=== PATIENT | female | born 1965 | race African-American/Black ===

== ENCOUNTER 2016-11-17 04:49 | Emergency (ER) | payer OTHER ==
[~2016-11-17] VITALS: Ht 165.1 cm; Wt 65.3 kg
[~2016-11-17 04:49] MED LIST: COUMADIN 5 MG TA5 M1 PO; ENOXAPARIN100 MG/1 M SQ; ESTRACE2 MG PO; GLUCOSAMINE1000 MG PO; HYDROXYCHLOROQ200 M1 PO; MULTI-VITAMIN1 EAC5 PO; NORCO 5-325 TA1 EACH PO; PEPCID40 MG PO; TRAMADOL 50 MG50 MG PO; TUSSIONEX PENN473 ML PO; ZPAK PO
[2016-11-17] MEDS ORDERED: ACYCLOVIR 800800 MG PO (05:32)
[2016-11-17] MEDS ORDERED: TRAMADOL 50 MG50 MG PO (05:32)
== END 2016-11-17 06:00 | disposition home or self-care (01) ==
LOC: ER 04:49
DX: B02.9 Zoster without complications (principal); Z91.012 Allergy to eggs; Z88.0 Allergy status to penicillin; Z88.2 Allergy status to sulfonamides

== ENCOUNTER → 2020-04-19 | Outpatient (CLI) | payer OTHER ==
[~2020-04-19] MED LIST changes: +ACYCLOVIR 800800 MG PO; +ALEVE220 MG PO; +MULTI VITAMIN1 EACH PO; +VITAMIN B122500 MCG PO
== END ==
LOC: LAB 10:01
PROVIDERS: ATTEND Orthopaedic Surgery Sports Medicine
DX: Z01.812 Encounter for preprocedural laboratory examination (principal); Z20.822 Contact with and (suspected) exposure to COVID-19

== ENCOUNTER → 2020-04-24 | Day surgery (SDC) | payer OTHER ==
[~2020-04-24] VITALS: Ht 165.1 cm; Wt 68.5 kg
--- NOTE | ~2020-04-24 | O ---
[address] [address] OPERATIVE REPORT Name: KIYA MENDOZA Room #: REG [facility].#: [id number] Admission: 04/24/20 Attend Phys: Frankie Dominguez MD Discharge: Date of : 63 Report #: [id number] THIS REPORT FOR: cc: Amee Murray K. Steven DO McCabe, Michael P. MD ~ DATE OF SERVICE: 04/24/2020 SERVICE: Orthopedic. FACILITY: [facility]. SURGEON: Frankie Dominguez MD. HIGHWAY PATROL OFFICER: Deja Meyer NP. PREOPERATIVE DIAGNOSES: 1. Right hip pain. 2. Right hip femoroacetabular impingement. 3. Right hip labral tear. 4. Right hip chondromalacia. 5. Lupus. 6. Sjogren syndrome. 7. Traumatic brain injury. POSTOPERATIVE DIAGNOSES: 1. Right hip pain. 2. Right hip femoroacetabular impingement. 3. Right hip labral tear. 4. Right hip chondromalacia. 5. Lupus. 6. Sjogren syndrome. 7. Traumatic brain injury 8. Right hip synovitis. PROCEDURES: 1. Right hip arthroscopic labral repair. 2. Right hip arthroscopic Cam osteochondroplasty. 3. Right hip arthroscopic subspine decompression. 4. Right hip arthroscopic chondroplasty and synovectomy. COMPLICATIONS: None. DRAINS: None. [address] [address] OPERATIVE REPORT Name: KIYA MENDOZA Room #: REG [facility]#: [id number] Admission: 04/24/20 Attend Phys: Frankie Dominguez MD Discharge: Date of : 63 Report #: [id number] SPECIMENS: None. ANESTHESIA: General with regional. FINDINGS: 1. Intense synovitis with synovial effusion noted upon placement of the scope into the hip, treated with a thorough synovectomy. 2. 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 3. Detached labral tear with erythema of the labrum. Labrum repair with Chris CinchLock suture anchor x 3 and NanoTack anchor x 1. 4. Extraarticular impingement from prominent anterior inferior iliac spine causing subspine impingement, which required additional capsular dissection with the cautery and the shaver and additional bony work with the bur. 5. Capsular repair with #2 Vicryl x 6. 6. Due to specific instructions from the neurologist to run the patient's intraoperative blood pressure at a specific systolic and mean arterial level, special accommodations were made by Anesthesia with the surgical strategy to accommodate this. HISTORY: The patient is a 54-year-old female with a history of persistent progressive right hip pain and failed extensive conservative measures including rest and activity modifications, physical therapy, oral medicines. She had incomplete and only temporary pain relief with intra-articular injection and attempted modalities treatments as well. She had a physical examination, which was consistent with femoroacetabular impingement, pain with hip flexion, decreased internal rotation and had pain that was affecting her activities of daily living and was causing severe pain with mechanical symptoms. The imaging was consistent with MAURICE with an alpha angle of approximately 65 degrees, Tonnis grade of 1, well maintained joint space, a small crossover sign secondary to a prominent anterior inferior iliac spine and a labral tear on the MRI. There was suggestion of mild chondromalacia present as well, but no evidence of osteoarthritis. There was no evidence of an inflammatory arthropathy either given her history of autoimmune disorder, she was indicated for surgical treatment after failing conservative measures. Risks, benefits, alternatives and indications for surgery were discussed with her in detail. Risks include but not limited to pain, bleeding, infection, injury to nerves or blood vessels, persistent pain despite surgical intervention, failure of any repairs, progression of preexisting chondral injury, stiffness, need for further surgery as well as complications related to anesthesia such as stroke, heart attack, pulmonary complications, thromboembolic disease and . Despite these risks, she wished to proceed. PROCEDURE IN DETAIL: After right lower extremity was correctly identified in the preoperative holding area as the operative extremity, the patient underwent [address] [address] OPERATIVE REPORT Name: KIYA MENDOZA Magan Room #: REG [facility]..#: [id number] Admission: 04/24/20 Attend Phys: Frankie Dominguez MD Discharge: Date of : 63 Report #: [id number] a regional nerve block. She was then taken to the operating room where general anesthesia was induced without complications. She was padded appropriately. Appropriate antibiotics were administered at appropriate time. C-arm was brought in to assess the femoral head and neck junction to identify the extent of the Cam deformity. Right hip was then prepped and draped in standard sterile fashion. Timeout procedure was performed. We used a large diameter cannula for the inflow throughout the procedure to accommodate the increased blood pressure requirements per the neurologist recommendation and utilized epinephrine and every bag of irrigant that was used. We had no difficulty with visualization throughout the procedure. Standard enterotomy port was established followed by mid anterior working portal. Diagnostic arthroscopy was performed. There was intense synovitis throughout the hip and capsular erythema as well as erythema throughout the anterior quadrant of the acetabular labrum. This will be the indication for a continuous passive motion machine usage postoperatively in order to reduce the risk of scarring and adhesions that these can be reasons for reoperation in this patient ____. The shaver was used to perform the synovectomy anteriorly and laterally. We performed a transverse capsulotomy and then reflected the capsule of the dorsal side of the labrum allowing access to the acetabular side of the hip. There was obvious detached anterior labral tear and the capsular dissection was performed and the anterior inferior iliac spine, she had a very broad AIIS, which was prominent against the acetabular rim sitting directly adjacent to the erythematous labrum. The capsule was dissected free to isolate the subspine region and the bur was used to perform a thorough subspine decompression in a standard fashion. We then used the bur to gently upgrade the acetabular rim to create a fresh bleeding surface for labral re-fixation. I then proceeded with labral repair. There was no rim over coverage, so no significant rim acetabuloplasty was required. The first CinchLock suture anchor was placed, the second more laterally with cerclage sutures. We then assessed and there was continued mobility of the labrum with the full thickness tear more medially, so I placed a third anchor in this location with a Leslie NanoTack anchor, which provided improved reduction and compression of the labrum against the acetabular rim in that far medial position. A biter was then used to perform a limited chondroplasty of the chondral labral junction where there was some detached cartilage, but this overall was a small surface area of approximately 4 mm in size and then the shaver was used to perform a chondroplasty in this area and resect the synovitic tissue present at the chondral labral junction. We then moved viewing portal anteriorly and the working portal laterally. I placed a third CinchLock suture anchor on the lateral margin of the tear providing good hoahaoism of the labral stability. Final chondroplasty was completed. Note that there was grade 2 and partial thickness grade 3 chondromalacia in the more central portion of the femoral head. This was superficial of approximately 20% articular cartilage [address] [address] OPERATIVE REPORT Name: KIYA MENDOZA Room #: REG [facility].#: [id number] Admission: 04/24/20 Attend Phys: Frankie Dominguez MD Discharge: Date of : 63 Report #: [id number] width and there were no significant flat tears of the cartilage. Therefore, no further chondroplasty was required of the femoral head. Note that upon placement of the scope into the hip, there was seen to be a significant amount of thick synovitic fluid and this synovial fluid was aspirated and discarded. Then, we lavaged the residual portion out of the hip at the beginning of this procedure. At the conclusion of the labral repair, the chondroplasty of the hip was flexed up. Attention was turned towards the peripheral compartment as traction was let down. The transverse capsulotomy extended down the neck in a T fashion to allow access to the entire Cam deformity. Then, the bur was used to perform a thorough Cam osteochondroplasty in typical fashion. The instruments were removed. The C-arm was brought in and the Cam osteoplasty was assessed ____ with appearance of the Cam resection and placed instruments back in the hip, lavaged of bony debris out of the hip and then repaired the capsulotomy. A total of six #2 Vicryl sutures were used to repair the capsule. Then, the instruments were removed. The portal sites were closed. Sterile dressing was applied. The patient was awakened from anesthesia and taken to recovery in stable condition. There were no complications. All counts were correct. She is ordered Xarelto for 2 weeks due to her history of DVT and proclivity for blood clot formation. After 2 weeks, we will transition her off the crutches and transition her to an aspirin per day. By: [id number] Frankie Dominguez MD /nt
[2020-04-24 13:15] VITALS: BP 146/80
[2020-04-24 17:35] VITALS: BP 146/80
== END | disposition home or self-care (01) ==
LOC: OR 09:41 → EDSTATUS 10:00 → OR 10:01 → PRE 11:18 → OR 11:49
PROVIDERS: ATTEND Orthopaedic Surgery Sports Medicine
DX: M25.551 Pain in right hip (principal); M25.851 Other specified joint disorders, right hip; S73.101A Unspecified sprain of right hip, initial encounter; M94.251 Chondromalacia, right hip; M65.88 Other synovitis and tenosynovitis, other site; M32.9 Systemic lupus erythematosus, unspecified; M35.00 Sjogren syndrome, unspecified; S06.9X0A Unspecified intracranial injury without loss of consciousness, initial encounter; G43.909 Migraine, unspecified, not intractable, without status migrainosus; M79.7 Fibromyalgia; Z98.890 Other specified postprocedural states; Z79.899 Other long term (current) drug therapy; Z90.49 Acquired absence of other specified parts of digestive tract; Z90.710 Acquired absence of both cervix and uterus; Z88.2 Allergy status to sulfonamides; Z88.0 Allergy status to penicillin; Z88.8 Allergy status to other drugs, medicaments and biological substances; X58.XXXA Exposure to other specified factors, initial encounter; Y93.89 Activity, other specified; Y92.89 Other specified places as the place of occurrence of the external cause; Y99.8 Other external cause status
CPT/HCPCS: 50010; 50101; 50386; 51320; 51538; 52001; 52282; 52304; 52313; 56524; 56527; 57092; 57103; 58273; 58274; 58557; 58558; 58559; 58560; 58561; 58562; 58563; 58564; 62110; 62900; 64039; 70005